=== PATIENT | male | born 1945 | race Caucasian/White ===

== ENCOUNTER 2016-06-15 12:31 | Emergency (ER) | payer MEDICARE, OTHER ==
[~2016-06-15] VITALS: Ht 180.3 cm; Wt 95.3 kg
[2016-06-15] MEDS ORDERED: ASPI81TA85 PO (12:50)
[2016-06-15] MEDS ORDERED: TRIA37.53 PO (12:50)
[2016-06-15] MEDS ORDERED: LISI-538 PO (12:50)
[2016-06-15] MEDS ORDERED: LOPR1TAB7 PO (12:50)
[2016-06-15] MEDS ORDERED: ATOR40TA PO (12:50)
[2016-06-15] MEDS ORDERED: NIFE20CA PO (12:50)
[2016-06-15] MEDS ORDERED: KETOROLAC 60 MG/2 ML VIAL (J1885) IM ONE (13:15)
--- NOTE | 2016-06-15 14:03 | REP ---
AP PELVIS: 06/15/2016 CLINICAL HISTORY: Left SI joint pain. FINDINGS: No prior study. Posterior element, bony fusion and pedicle screws from L4 through S1 noted. SI joints symmetric without erosion or narrowing. No abnormal sclerosis. Sacral ala and foramina unremarkable. Iliac wings, acetabuli and ischium without destructive lesion. There are degenerative changes at the acetabular roof bilaterally representing some degree of osteoarthritis. No abnormal calcifications. There are surgical clips in the deep pelvis. IMPRESSION: 1. No visible fracture or destructive lesion. 2. Hip osteoarthritis and evidence for prior lumbar fusion with pedicle screws, arch bars and bone graft material. 3. SI joints symmetric without erosion, sclerosis, narrowing or other acute finding. Signed by Lloyd Mckeon MD 06/15/2016 05:51 P
[2016-06-15 14:12] VITALS: BP 142/89
[2016-06-15] MEDS ORDERED: MEDR4PAK PO (14:13)
[2016-06-15] MEDS ORDERED: ZOFR4TAB3 PO (14:19)
[2016-06-15] MEDS ORDERED: ONDANSETRON 4 MG ORAL DISINTEGRATING TAB (S0181) PO ONE (14:30)
== END 2016-06-15 14:42 | disposition home or self-care (01) ==
LOC: M ED 13:53
DX: M46.1 Sacroiliitis, not elsewhere classified (principal); M16.12 Unilateral primary osteoarthritis, left hip; I10 Essential (primary) hypertension; Z98.1 Arthrodesis status
CPT/HCPCS: 72170; 96372; 99282; J1885

== ENCOUNTER → 2016-07-11 | Outpatient (REF) | payer MEDICARE, OTHER ==
[~2016-07-11] MED LIST: ASPI81TA85 PO; ATOR40TA PO; LISI-538 PO; LOPR1TAB7 PO; MEDR4PAK PO; NIFE20CA PO; TRIA37.53 PO; ZOFR4TAB3 PO
[2016-07-11 13:58] LABS: ALBUMIN 3.7 GM/DL (3.2-5.2); ALBUMIN/GLOBULIN RATIO 1.03 (1.00-1.93); ALKALINE PHOSPHATASE 98 U/L (45-117); ALT/SGPT 23 U/L (12-78); ANION GAP 7 MEQ/L (8-16); AST/SGOT 13 U/L (15-37); BILIRUBIN,TOTAL 0.5 MG/DL (0.2-1.0); BLOOD UREA NITROGEN 20 MG/DL (7-18); CALCIUM LEVEL 9.4 MG/DL (8.8-10.2); CARBON DIOXIDE LEVEL 31 MEQ/L (21-32); CHLORIDE LEVEL 103 MEQ/L (98-107); CHOLESTEROL LEVEL 155 MG/DL (<200); CREATININE FOR GFR 0.93 MG/DL (0.70-1.30); GLOMERULAR FILTRATION RATE > 60.0 (>42); GLUCOSE, FASTING 124 MG/DL (83-110); POTASSIUM SERUM 3.7 MEQ/L (3.5-5.1); SODIUM LEVEL 141 MEQ/L (136-145); TOTAL PROTEIN 7.3 GM/DL (6.4-8.2); TRIGLYCERIDES LEVEL 185 MG/DL (<150)
[2016-07-11 14:13] LABS: BASO % 0.4 % (0.0-1.0); EOS # 0.2 K/mm3 (0.0-0.50); EOS % 2.6 % (0.0-3.0); LARGE UNSTAINED CELL # 0.1 K/mm3 (0.0-0.4); LARGE UNSTAINED CELL % 1.2 % (0.0-4.0); LYMPH # 1.1 K/mm3 (1.5-4.5); LYMPH % 16.6 % (24.0-44.0); MEAN CORPUSCULAR HEMOGLOBIN 32.8 pg (27.0-33.0); MEAN CORPUSCULAR HGB CONC 36.1 g/dl (32.0-36.5); MEAN CORPUSCULAR VOLUME 90.8 fl (80.0-96.0); MONO # 0.6 K/mm3 (0.0-0.8); MONO % 9.5 % (0.0-5.0); NEUTROPHILS # 4.6 K/mm3 (1.8-7.7); NEUTROPHILS % 69.7 % (36.0-66.0); PLATELET COUNT, AUTOMATED 245 k/mm3 (150-450); RED CELL DISTRIBUTION WIDTH 13.6 % (11.5-14.5); WHITE BLOOD COUNT 6.6 K/mm3 (4.0-10.0)
== END ==
LOC: M SFHCCLAY 07:48
PROVIDERS: ATTEND Family Medicine
DX: I10 Essential (primary) hypertension (principal); R73.01 Impaired fasting glucose; E78.2 Mixed hyperlipidemia
CPT/HCPCS: 80053; 80061; 83036; 85025; G0463

== ENCOUNTER → 2016-11-21 | Outpatient (CLI) | payer MEDICARE, OTHER ==
[~2016-11-21] MED LIST changes: -ATOR40TA PO; +ATOR40TA75 PO; +BALANCED SALT SOLN OPHTH 15 ML BTL XX ONE; +ISOVUE-300 61% 50ML VIAL (Q9967) As Ordered ONE; +ISOVUE-M 300 61% 15ML VIAL (Q9967) As Ordered ONE; +PROPARACAINE 0.5% OPHTH SOL 15ML XX ONE
--- NOTE | 2016-11-22 06:37 | REP ---
Dacryocystography: Bilateral study. History: Bilateral nasolacrimal duct obstruction. Procedure: The inferior canaliculus of both eyes is cannulated by the referring partner alliance manager. Contrast is injected under fluoroscopic spot visualization in the PA projection. A total of 37 spot images are acquired. 20 seconds of fluoroscopy time was utilized. Findings: Initial bilateral injection only filled the left side. There is prompt filling of normal inferior and superior canaliculi on the left. The common canaliculus is unremarkable. The nasolacrimal sac and duct are patent and slightly irregular. No filling defect is seen. No dilation noted. A second injection was performed unilaterally on the right and this was successful. The superior and inferior canaliculi and the common canaliculus are normal in appearance. The nasolacrimal sac and duct on the right are quite irregular but patent with prompt spillage into the nasopharynx. No filling defect is visualized. There is a small air bubble in the proximal duct on the right. Impression: Irregularity of the nasolacrimal ducts bilaterally, right greater than left. Patency is documented on both sides. There is no evidence of obstruction or mass. Signed by Danilo Meneses MD 11/22/2016 08:02 A
== END ==
LOC: M RADPRO 14:26
PROVIDERS: ATTEND Ophthalmology
DX: H04.563 Stenosis of bilateral lacrimal punctum (principal)
CPT/HCPCS: 68850; 70170; Q9967

== ENCOUNTER → 2016-12-28 | Outpatient (REF) | payer MEDICARE, OTHER ==
[~2016-12-28] MED LIST changes: -BALANCED SALT SOLN OPHTH 15 ML BTL XX ONE; -ISOVUE-300 61% 50ML VIAL (Q9967) As Ordered ONE; -ISOVUE-M 300 61% 15ML VIAL (Q9967) As Ordered ONE; -PROPARACAINE 0.5% OPHTH SOL 15ML XX ONE
[2016-12-29 11:41] LABS: BASO # 0.1 10^3/uL (0.0-0.2); BASO % 0.6 % (0.0-1.0); EOS # 0.4 10^3/uL (0.0-0.50); EOS % 3.6 % (0.0-3.0); IMMATURE GRANULOCYTE % 0.3 % (0-0); LYMPH # 1.9 10^3/uL (1.5-4.5); LYMPH % 19.1 % (24.0-44.0); MEAN CORPUSCULAR HEMOGLOBIN 30.5 pg (27.0-33.0); MEAN CORPUSCULAR HGB CONC 34.4 g/dl (32.0-36.5); MEAN CORPUSCULAR VOLUME 88.6 fl (80.0-96.0); MONO # 1.3 10^3/uL (0.0-0.8); MONO % 12.8 % (0.0-5.0); NEUTROPHILS # 6.2 10^3/uL (1.8-7.7); NEUTROPHILS % 63.6 % (36.0-66.0); PLATELET COUNT, AUTOMATED 254 10^3/uL (150-450); RED CELL DISTRIBUTION WIDTH 14.2 % (11.5-14.5); WHITE BLOOD COUNT 9.7 10^3/uL (4.0-10.0)
[2016-12-29 12:09] LABS: ALBUMIN 3.8 GM/DL (3.2-5.2); ALBUMIN/GLOBULIN RATIO 0.97 (1.00-1.93); ALKALINE PHOSPHATASE 116 U/L (45-117); ALT/SGPT 22 U/L (12-78); ANION GAP 7 MEQ/L (8-16); AST/SGOT 12 U/L (15-37); BILIRUBIN,TOTAL 0.7 MG/DL (0.2-1.0); BLOOD UREA NITROGEN 26 MG/DL (7-18); CALCIUM LEVEL 9.4 MG/DL (8.8-10.2); CARBON DIOXIDE LEVEL 32 MEQ/L (21-32); CHLORIDE LEVEL 99 MEQ/L (98-107); CREATININE FOR GFR 1.11 MG/DL (0.70-1.30); GLOMERULAR FILTRATION RATE > 60.0 (>42); GLUCOSE, FASTING 118 MG/DL (83-110); POTASSIUM SERUM 3.7 MEQ/L (3.5-5.1); SODIUM LEVEL 138 MEQ/L (136-145); TOTAL PROTEIN 7.7 GM/DL (6.4-8.2)
== END ==
LOC: M SFHCCLAY 14:50
PROVIDERS: ATTEND Family Medicine
DX: I10 Essential (primary) hypertension (principal); R53.83 Other fatigue; R73.01 Impaired fasting glucose; Z11.59 Encounter for screening for other viral diseases; M17.0 Bilateral primary osteoarthritis of knee; J01.00 Acute maxillary sinusitis, unspecified; E78.2 Mixed hyperlipidemia; M70.72 Other bursitis of hip, left hip
CPT/HCPCS: 80053; 83036; 84443; 85025; 86803; G0463

== ENCOUNTER → 2017-07-09 | Outpatient (REF) | payer MEDICARE, OTHER ==
[2017-07-09 17:15] LABS: ALBUMIN 3.9 GM/DL (3.2-5.2); ALBUMIN/GLOBULIN RATIO 0.98 (1.00-1.93); ALKALINE PHOSPHATASE 98 U/L (45-117); ALT/SGPT 21 U/L (12-78); ANION GAP 9 MEQ/L (8-16); AST/SGOT 14 U/L (7-37); BILIRUBIN,TOTAL 0.6 MG/DL (0.2-1.0); BLOOD UREA NITROGEN 19 MG/DL (7-18); CALCIUM LEVEL 9.2 MG/DL (8.8-10.2); CARBON DIOXIDE LEVEL 27 MEQ/L (21-32); CHLORIDE LEVEL 106 MEQ/L (98-107); CHOLESTEROL LEVEL 132 MG/DL (<200); CHOLESTEROL RISK RATIO 3.069 (<5); CREATININE FOR GFR 1.05 MG/DL (0.70-1.30); GLOMERULAR FILTRATION RATE > 60.0 (>42); GLUCOSE, FASTING 106 MG/DL (70-100); HDL CHOLESTEROL 43 MG/DL (>40); LDL CHOLESTEROL 63.4 MG/DL (<100); NON-HDL-C 89 MG/DL; PROSTATIC SPECIFIC AG MONITOR < 0.01 NG/ML (< 4.0); SODIUM LEVEL 142 MEQ/L (136-145); TOTAL PROTEIN 7.9 GM/DL (6.4-8.2); TRIGLYCERIDES LEVEL 128 MG/DL (<150)
[2017-07-09 17:16] LABS: ESTIMATED AVERAGE GLUCOSE 120 MG/DL (60-110); HEMOGLOBIN A1c 5.8 %
== END ==
LOC: M SFHCCLAY 10:26
DX: E78.2 Mixed hyperlipidemia (principal); R73.01 Impaired fasting glucose; Z85.46 Personal history of malignant neoplasm of prostate
CPT/HCPCS: 80053

== ENCOUNTER → 2018-07-08 | Outpatient (REF) | payer MEDICARE, OTHER ==
[~2018-07-08] MED LIST changes: +ZOFR4TAB14 PO; -ZOFR4TAB3 PO
== END ==
LOC: M LAB REF 16:44
PROVIDERS: ATTEND Otolaryngology
DX: J30.89 Other allergic rhinitis (principal)

== ENCOUNTER → 2018-09-05 | Outpatient (REF) | payer MEDICARE, OTHER | LOC: M LABDRAWC 11:13 | PROVIDERS: ATTEND Urology | DX: Z85.46 Personal history of malignant neoplasm of prostate (principal) ==

== ENCOUNTER → 2018-09-27 | Outpatient (REF) | payer MEDICARE ==
[2018-09-27 12:34] LABS: BASO % 0.6 % (0.0-1.0); EOS # 0.2 10^3/uL (0.0-0.50); EOS % 2.8 % (0.0-3.0); HEMATOCRIT 43.5 % (42.0-52.0); HEMOGLOBIN 14.9 g/dl (13.5-17.5); LYMPH # 1.3 10^3/uL (1.5-4.5); LYMPH % 20.4 % (24.0-44.0); MEAN CORPUSCULAR HEMOGLOBIN 30.5 pg (27.0-33.0); MEAN CORPUSCULAR HGB CONC 34.3 g/dl (32.0-36.5); MEAN CORPUSCULAR VOLUME 89.1 fl (80.0-96.0); MONO # 0.8 10^3/uL (0.0-0.8); MONO % 11.5 % (0.0-5.0); NEUTROPHILS # 4.2 10^3/uL (1.8-7.7); NEUTROPHILS % 64.4 % (36.0-66.0); PLATELET COUNT, AUTOMATED 222 10^3/uL (150-450); RED BLOOD COUNT 4.88 10^6/uL (4.30-6.10); WHITE BLOOD COUNT 6.5 10^3/uL (4.0-10.0)
[2018-09-27 13:04] LABS: ALBUMIN 3.8 GM/DL (3.2-5.2); ALT/SGPT 22 U/L (12-78); BILIRUBIN,TOTAL 0.8 MG/DL (0.2-1.0); BLOOD UREA NITROGEN 18 MG/DL (7-18); CALCIUM LEVEL 8.9 MG/DL (8.8-10.2); CARBON DIOXIDE LEVEL 32 MEQ/L (21-32); CHLORIDE LEVEL 103 MEQ/L (98-107); CHOLESTEROL LEVEL 148 MG/DL (<200); CHOLESTEROL RISK RATIO 3.288 (<5); GLOMERULAR FILTRATION RATE > 60.0 (>42); GLUCOSE, FASTING 129 MG/DL (70-100); HDL CHOLESTEROL 45 MG/DL (>40); LDL CHOLESTEROL 76 MG/DL (<100); NON-HDL-C 103 MG/DL; POTASSIUM SERUM 3.6 MEQ/L (3.5-5.1); PROSTATIC SPECIFIC AG MONITOR < 0.01 NG/ML (< 4.00); SODIUM LEVEL 140 MEQ/L (136-145); TOTAL PROTEIN 7.3 GM/DL (6.4-8.2); TRIGLYCERIDES LEVEL 134 MG/DL (<150)
== END ==
LOC: M SFHCCLAY 09:07
PROVIDERS: ATTEND Family Medicine
DX: I10 Essential (primary) hypertension (principal); R73.01 Impaired fasting glucose; E78.2 Mixed hyperlipidemia; Z85.46 Personal history of malignant neoplasm of prostate

== ENCOUNTER 2019-08-05 10:46 | Day surgery (SDC) | payer MEDICARE ==
[~2019-08-05] VITALS: Ht 180.3 cm; Wt 105.9 kg
[2019-08-05] MEDS ORDERED: AMLO10TA5 PO (10:58)
[2019-08-05] MEDS ORDERED: VENTAER INH (10:58)
[2019-08-05] MEDS ORDERED: ESCI20TA PO (10:58)
[2019-08-05] MEDS ORDERED: CARV25TA PO (10:58)
[2019-08-05] MEDS ORDERED: TRIA37.5 PO (10:58)
[2019-08-05] MEDS ORDERED: MECLIZINE 25 MG TABLET PO ONE (11:30)
[2019-08-05 12:04] LABS: BASO % 0.4 % (0.0-1.0); EOS # 0.2 10^3/uL (0.0-0.5); EOS % 1.8 % (0.0-3.0); HEMATOCRIT 43.5 % (42.0-52.0); HEMOGLOBIN 15.6 g/dl (13.5-17.5); LYMPH # 1.5 10^3/uL (1.5-5.0); LYMPH % 16.1 % (24.0-44.0); MEAN CORPUSCULAR HEMOGLOBIN 31.8 pg (27.0-33.0); MEAN CORPUSCULAR HGB CONC 35.9 g/dl (32.0-36.5); MEAN CORPUSCULAR VOLUME 88.6 fl (80.0-96.0); MONO # 1.2 10^3/uL (0.0-0.8); MONO % 12.4 % (0.0-5.0); NEUTROPHILS # 6.4 10^3/uL (1.5-8.5); NEUTROPHILS % 69.1 % (36.0-66.0); PLATELET COUNT, AUTOMATED 202 10^3/uL (150-450); RED BLOOD COUNT 4.91 10^6/uL (4.30-6.10); WHITE BLOOD COUNT 9.3 10^3/uL (4.0-10.0)
--- NOTE | 2019-08-05 12:08 | REP ---
CT BRAIN WITHOUT CONTRAST: CT brain performed without IV contrast. There are no prior studies. Coronal reconstruction images are performed. There is moderate atrophy. There is no midline shift or mass effect. Patchy periventricular small vessel ischemic changes are present. There is no acute intracranial hemorrhage or extra-axial fluid collection. No skull fracture is seen. There are vascular calcifications in the carotid siphons. IMPRESSION: Chronic changes as discussed above with no evidence of acute intracranial hemorrhage or skull fracture. Electronically Signed by Mook Condon MD 08/05/2019 12:19 P
--- NOTE | 2019-08-05 12:26 | REP ---
CT CERVICAL SPINE: CT cervical spine performed in the axial plane with sagittal and coronal reconstruction images. There is no compression fracture or malalignment. There is evidence of prior anterior cervical discectomy and fusion at C3 through C7 levels. Anterior metallic plate is intact and is fixed with multiple metallic screws. There is anterior spurring at C3-4 and at C7-T1. Disc space narrowing is present at C3-4 with subchondral sclerosis and irregularity of the endplates. There is a disc spacer at C4-5. There is partial fusion at C5-6. There is significant narrowing at C6-7. There is posterior osteophytic ridging at C3-4 with uncovertebral spurring. There appears to be mild to moderate canal stenosis at that level with moderate bilateral foraminal narrowing. There is mild posterior osteophytic ridging at C6-7 with uncovertebral spurring. There is likely mild to moderate central canal stenosis with moderate right-sided foraminal narrowing. IMPRESSION: Degenerative changes and postsurgical changes as discussed above with no evidence of acute fracture or dislocation. Electronically Signed by Mook Condon MD 08/05/2019 12:27 P
[2019-08-05 13:03] LABS: ALBUMIN 3.7 GM/DL (3.2-5.2); ALT/SGPT 20 U/L (12-78); BILIRUBIN,TOTAL 0.6 MG/DL (0.2-1.0); BLOOD UREA NITROGEN 28 MG/DL (7-18); CALCIUM LEVEL 9.6 MG/DL (8.8-10.2); CARBON DIOXIDE LEVEL 25 MEQ/L (21-32); CHLORIDE LEVEL 105 MEQ/L (98-107); CREATININE FOR GFR 1.06 MG/DL (0.70-1.30); GLOMERULAR FILTRATION RATE > 60.0 (>42); GLUCOSE, FASTING 115 MG/DL (70-100); POTASSIUM SERUM 3.6 MEQ/L (3.5-5.1); SODIUM LEVEL 138 MEQ/L (136-145); TOTAL PROTEIN 7.2 GM/DL (6.4-8.2)
[2019-08-05 13:28] LABS: CK-MB VALUE MASS < 1.0 NG/ML (<3.6); CPK CREATINE PHOSPHOKINASE 86 U/L (39-308); MB/CK RELATIVE INDEX 1.16 (< OR =4); TROPONIN I < 0.02 NG/ML (< 0.10)
[2019-08-05] MEDS ORDERED: LIDOCAINE 1% SDV 30ML VIAL As Ordered ONE (13:58)
[2019-08-05] MEDS ORDERED: BACITRACIN PWD 50,000 UNITS VIAL As Ordered ONE (13:59)
[2019-08-05] MEDS ORDERED: ISOVUE-300 61% 50ML VIAL As Ordered ONE ×2 (13:59→17:53)
[2019-08-05] MEDS ORDERED: AMIODARONE HCL 150 MG/100 ML PREMIXED BAG (NEXTERONE) (J0282 PER 30MG) As Ordered ONE (13:59)
[2019-08-05 14:51] LABS: NT-PRO BNP 112 PG/ML (<125)
--- NOTE | 2019-08-05 15:43 | REP ---
REASON: Cardiac symptoms. PRIORS: None. The heart is borderline. The lungs are clear and the pleural angles are sharp. The osseous structures are within normal limits for the patient's age. There are spinal degenerative changes noted. IMPRESSION: Cardiomegaly without evidence of acute cardiopulmonary disease. Electronically Signed by Timmy Navarro DO 08/05/2019 04:05 P
--- NOTE | 2019-08-05 15:49 | CR ---
EMERGENCY ROOM CARDIOLOGY CONSULTATION: DATE OF CONSULTATION: 08/05/2019 REFERRING PHYSICIAN: Dr. Deb Mckeon INDICATION: Recurrent near syncope with effort dyspnea related to bradyarrhythmia. 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 Silva and Dr. Rainey for longstanding essential hypertension, obstructive sleep apnea, and abnormal EKG. Claims to first been aware of right bundle branch block some 10 years ago. EKG from 07/31/2016, from [place] shows a sinus bradycardia at 59 beats per minute (bpm) with extreme left axis deviation - left anterior hemiblock and right bundle branch block. He has been essentially free of any cardiovascular complaint until approximately 2-3 weeks ago when he developed increasing effort dyspnea and lightheadedness/ faintness. 07/18/2019, he collapsed having tried to get up out of bed claiming that his feet got tangled. Suffered blunt head trauma without serious consequence. He came to the emergency room for evaluation this morning because of persistence of unsteadiness and effort dyspnea. He was found to have marked bradycardia and intermittent high-grade atrioventricular (AV) block, so cardiology consultation was requested for possible permanent pacemaker. OTHER CARDINAL CARDIAC SYMPTOMS: Prior to a month ago did not feel particularly restricted. Their home Has multiple levels and he has been able to climb these stairs without difficulties. In particular, has been free of any effort related chest, jaw or arm discomfort. Aware of his abnormal EKG as mentioned above. Remote cardiac catheterization showed no evidence of obstructive coronary disease. Underwent a pharmacological stress first scan 4 years ago prior to knee surgery that confirmed a favorable prognosis at that time. Has only occasional dietary related heartburn. No history of reflux, dysphagia or gastrointestinal (GI) bleeding. He was exposed to secondhand smoke for 18 years growing up and never smoked cigarettes but does admit to occasionally smoking a cigar. Has a chronic problem with sinusitis and occasional dry cough but no hemoptysis or prior pneumonia. Customarily does not have shortness of breath as mentioned. Has had sleep disturbance, obstructive sleep apnea dating back to 20 years or more. Has had difficulty with continuous positive airway pressure (CPAP) therapies because of claustrophobia. Has been sleeping with CPAP by nasal prongs for the past 2-4 years. Manages his sleep for 2-4 hours using pressure therapy. Nocturia once or twice nightly. No history of rheumatic fever or heart murmur. Treated hypertension since his late 30s, but no known cardiomegaly. The patient's blood pressure is reasonably controlled,128-130/80s. Has a mild weight problem (weighed 130 pounds at age 18; max weight 270 pounds prior to back surgery 2006; his usual weight for the past year has fluctuated between 210 and 220 pounds). Has no awareness of his heart action. Claims not to have had previous documented rhythm disturbance. Does describe a family history of electrical problems, his mother who suffered from rheumatic heart disease had her first pacemaker at age 50. No history of congenital deafness or family history of premature sudden cardiac . Drinks 2-3 caffeinated sodas daily but avoids coffee and tea. Infrequently drinks alcoholic beverages, perhaps 2-3 per month. No history of thyroid dysfunction. Nonsmoker. Does admit to intermittent use of Afrin nasal spray having problems with congestion despite Flonase and Zyrtec. Avoids [id number] energy drinks or diet aids. History of intermittent dizziness and faintness only the past 2-3 weeks. A fall as described above. No other history of loss of consciousness. 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 Denies any other lateralizing neurological deficit, flank pain, hematuria or blue toe syndrome. No history of claudication. Unaware of varicose veins, phlebitis or ankle swelling. CORONARY RISK FACTORS: Male gender. Age. Chronic hypertension. Borderline diabetes query. No history of hypercholesterolemia. Cigar smoker only on occasion. No family history of premature coronary heart disease. 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 Transurethral prostatectomy 2007 for cancer. Right knee surgery 2016. Chronic sinusitis. Obstructive sleep apnea. A weight problem. SYSTEMS REVIEW: Denies any recent fever, chills or weight loss. Wears corrective lenses. No hearing problems. Has his own teeth. GI and respiratory as mentioned above. Nocturia once or twice nightly, but no known kidney disease or kidney stones. Has some foot numbness related to his prior spinal stenosis but no other joint complaints. History of for some depression. All other systems review is negative. MEDICATIONS: He takes: - lisinopril 20 mg by mouth twice a day - aspirin 81 mg daily - carvedilol 25 mg twice a day - atorvastatin 40 mg at bedtime - amlodipine 10 mg daily - triamterene/hydrochlorothiazide 37.5-25 mg 1 tablet daily - albuterol inhaler 2 puffs four times a day as needed, shortness of breath, recently - escitalopram 20 mg daily ALLERGIES: BETADINE and ZOLOFT (hives). PHYSICAL EXAMINATION: CONSTITUTIONAL: Pleasant, bright elderly male lay comfortably with the head of the bed elevated 30 degrees. No pallor or cyanosis. Slightly overweight. VITAL SIGNS: Heart rate 40 bpm and regular with irregularity. Blood pressure 164/76 supine. Respiratory rate 16. Oxygen saturation 98% on room air. Afebrile. Weight 103 kg. Height 5 feet 11. EYES: Normal conjunctivae and lids. No pallor or icterus. No xanthelasma. ENT/MOUTH: Dentition in good repair. Normal oral moisture. No central cyanosis. NECK: Trachea midline. Thyroid not enlarged. Well-healed right vertical skin incision following his anterior cervical disc repair. Jugular veins were 2 cm above the sternal angle. RESPIRATORY: Normal appearing anteroposterior chest configuration and chest expansion. Good air entry over both lung gazra with no abnormal pulmonary adventitious sounds. CARDIOVASCULAR: Apical impulse not well palpated. Heart sounds were actually quite distant and variable. No audible gallops with a soft variable systolic ejection murmur grade 1-2/6 along the left sternal border radiating to the right base. No diastolic murmur or rub. Normal carotid upstrokes with slightly increase in volume at this time that was somewhat variable with his arrhythmia. No audible bruits. Upper extremity, femoral and pedal pulses were symmetrical and normal. Abdominal aorta was not palpable. No abdominal bruits. EXTREMITIES: Has +/- distal lower leg pitting, a few dilated superficial venules but no varicose veins. No clubbing, peripheral cyanosis or splinter hemorrhages. GASTROINTESTINAL: Slightly overweight but soft, nontender abdomen with no hepatosplenomegaly. Normal bowel sounds. RECTAL EXAMINATION: Not indicated. MUSCULOSKELETAL: Gait of course was not assessed at this time. Well healed knee and cervical as well as lumbar incisions following prior orthopedic surgeries. No obvious joint deformities. Normal appearing muscular strength and tone. SKIN: No rashes, ecchymotic lesions, pallor or icterus. NEUROLOGIC/PSYCHIATRIC: Bright, alert and oriented. Gave a good history. Eye, facial and extremity movements were symmetrical and normal. No involuntary movements. INVESTIGATIONS: Chest x-ray is pending at this time. EKG taken today at 1158 hours shows underlying sinus rhythm at 60 bpm with complete heart block and probable junctional escape at 39 bpm. Underlying QRS complexes similar to spontaneous complexes of 07/31/2016 showing extreme left axis consistent with left anterior hemiblock. He had primary precordial repolarization abnormalities. CT scan of the brain without contrast showed evidence of small vessel ischemic changes but no acute intracranial hemorrhage or infarction. No skull fracture. Vascular calcifications of the carotid siphons. Cervical CT scan spine showed degenerative changes and postsurgical changes but no acute dislocation or fracture. Blood Work: Hemoglobin 15.6, normal white blood cell count and platelet count. Electrolytes were in balance with a BUN 28, creatinine of 1.06, random glucose 115. Normal liver function studies. Troponin I was less than 0.02. ProBNP level and TSH are pending at this time. Albumin 3.7. COVID-19 serology is pending. IMPRESSION/PLAN: 1. Complete heart block: Intermittent phenomenon believed to be related to his recent onset effort intolerance and near-syncope/syncope. Though the patient is receiving carvedilol in light of his underlying conduction disturbance and his complete heart block, we have recommended implantation of permanent dual-chamber pacemaker under monitored local anesthesia. The indication, procedure and potential risks were discussed with the patient and his (his was on telephone), they appeared to understand and agree. This will be arranged as soon as possible. For the time being he will be kept nothing by mouth with IV fluid. 2. Abnormal EKG - antecedent bifascicular block (left anterior hemiblock and right bundle branch block): This dates back for at least 3 years and he has not apparently had symptomatic bradyarrhythmia on his current beta-cinthya until 2-3 weeks ago as mentioned above. I suspect this conduction disease is degenerative related to his chronic hypertension. 3. Chronic essential hypertension: Effort dyspnea as mentioned above believed to be related to his bradyarrhythmia not primarily left ventricular dysfunction. Has no other symptoms or signs of congestion, current increased systolic blood pressure and pulse pressure believed to be related to his bradyarrhythmia. His current mild prerenal azotemia is similarly suspected to be related to reduced renal perfusion with his bradyarrhythmia. His pacemaker implant will be arranged within a matter of the next few hours under monitored local anesthesia. We will likely be keeping him overnight and resuming his combination antihypertensive therapies. His jalousies installer in [place] is aware of his problems and need for permanent pacemaker. WILLIAN
[2019-08-05] MEDS ORDERED: LIDOCAINE 1% MDV 20ML VIAL As Ordered ONE (17:53)
[2019-08-05] MEDS ORDERED: ceFAZolin 2 GM/D5W 50 ML IV BAG (J0690 PER 500MG) As Ordered ONE (17:54)
[2019-08-05] MEDS ORDERED: AMIODARONE 150MG/3ML INJ (J0282) As Ordered ONE (17:54)
[2019-08-05] MEDS ORDERED: MIDAZOLAM INJ 2MG/2ML VIAL (J2250 PER 1MG) As Ordered ONE (18:00)
[2019-08-05] MEDS ORDERED: LIDOCAINE 2% 100MG/5ML SDV (FOR ANES.) As Ordered ONE (18:00)
[2019-08-05] MEDS ORDERED: propofoL 200 MG/20 ML VIAL As Ordered ONE ×3 (18:00→20:02)
[2019-08-05] MEDS ORDERED: fentaNYL 100 MCG/2 ML INJECTION (J3010) As Ordered ONE ×2 (18:00→21:08)
[2019-08-05] MEDS ORDERED: METOCLOPRAMIDE INJ 10MG/2ML VIAL (J2765 PER 1) IV PRN (21:00)
[2019-08-05] MEDS ORDERED: ONDANSETRON 4MG/2ML VIAL IV PRN (21:00)
[2019-08-05] MEDS ORDERED: ATORVASTATIN 20 MG TAB PO SCH (21:00)
[2019-08-05] MEDS ORDERED: LR 1,000 ML IV SCH (21:00)
[2019-08-05] MEDS ORDERED: ACETAMINOPHEN TAB 650MG DOSE (2X325MG) PO PRN (21:00)
[2019-08-05] MEDS: fentaNYL 100 MCG/2 ML INJECTION (J3010) IV PRN ×4 (21:10→21:38)
[2019-08-05 21:46] VITALS: BP 140/92
[2019-08-05] MEDS: CARVedilol 12.5 MG TAB PO SCH (22:13)
[2019-08-05] MEDS: lisinopriL 10 MG TAB PO SCH (22:14)
--- NOTE | 2019-08-05 22:33 | RO ---
DATE OF PROCEDURE: 08/05/2019 PROCEDURE: Implantation of permanent dual-chamber pacemaker. IMPLANTING MAGAZINE JOURNALIST: Dr. Gerber Knutson ANESTHESIOLOGIST: Dr. Munoz INDICATION: Complete heart block. POSTOPERATIVE DIAGNOSIS: Complete heart block. TYPE OF ANESTHESIA: Monitored local anesthesia. DESCRIPTION OF PROCEDURE: With the patient in the fasting state having signed informed consent and having received Ancef 2 grams IV premedication, he was taken to the operating theater. Numerous skin electrodes were applied to facilitate continuous electrocardiographic monitoring. Self-adhesive cardioverting/defibrillating/pacing pads were applied in an anteroposterior configuration and connected to a bedside cardioverter defibrillator noninvasive percutaneous pacing system. The left subclavian region was prepped and draped in the usual fashion, and the skin was infiltrated with 1% Xylocaine. We proceeded to puncture the left axillary vein and had considerable difficulty advancing the guidewire across the midline to the superior vena cava. We are not sure whether this had anything to do with his prior anterior cervical disc surgery. However, we finally were able to advance guidewires down to the inferior vena cava. We then proceeded to advance the pacing leads to the right ventricular apex into the right atrium under fluoroscopic and electrocardiographic control and again encountered considerable difficulty. The final right ventricular position was the right ventricular apex, but it was very difficult to enter the right ventricle. The final position for the right atrial lead was actually in the floor of the right atrium rather than the right ventricular apex as the right ventricular apex was actually electrically silent with no signal or capability of capture. The right ventricular lead ([employer], model #XFP2920O/58, serial #[id number]) measurements were: Stimulation threshold 0.4V/0.4 ms/impedance 616 ohms. The R wave amplitude measured 31.2 mV. The atrial lead ([employer], model #[id number]/52, serial #[id number]) measurements were: Stimulation threshold 0.4V/0.4 ms/impedance 441 ohms. The P wave amplitude measured 1.7 mV. These leads were secured in position with sleeves sutured at the insertion site. These leads were then connected to a dual chamber pulse generator ([employer] MRI compatible, model #HH8687, serial #[id number]) and appropriate DDD pacing was documented. The pulse generator was placed in the pocket and secured in position with a suture through the right upper hand corner of the epoxy header. The subcutaneous tissues were approximated using a running chromic suture and the skin was closed using tricia. A dry dressing was applied, and the patient was returned to the recovery room in good condition. As mentioned, technically extremely challenging case taking 15 minutes of fluoroscopy when the usual case will require 30 seconds to 45 seconds. Usual case duration for dual chamber pacemaker 45-50 minutes; this case took 2 hours and 15 minutes. Estimated blood loss: 50-100 mL. Postoperative portable upright chest x-ray showed good lead position with no pneumothorax or pleural effusion. His postoperative EKG showed consistent AV sequentially paced rhythm at 60 beats per minute (bpm). Paced QRS complexes had an extreme right axis deviation with right bundle branch block (RBBB) precordial configuration. The patient will be monitored overnight on telemetry, and we anticipate his discharge home tomorrow afternoon. He will receive an additional three doses of Ancef 1 gram IV every 8 hours.
[2019-08-05 23:00] VITALS: O2SAT 96
[2019-08-05] MEDS: amLODIPine 5 MG TAB PO SCH (23:15)
[2019-08-05 23:30] VITALS: BP 98/70
[2019-08-05] MEDS ORDERED: SLF 3 ML SYR IV PRN (23:30)
[2019-08-05] MEDS: traMADol 50 MG TAB PO PRN (23:55)
[2019-08-06] VITALS (18 sets, daily range): BP systolic 98–152; BP diastolic 70–96; O2SAT 95–97
--- NOTE | 2019-08-06 00:31 | ECGEPIP ---
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
[2019-08-06] MEDS: ceFAZolin SOD 1 GM in D5W MINI-BAG PLUS 50 ML IV SCH ×3 (01:49→17:24)
[2019-08-06] MEDS: SLF 3 ML SYR IV SCH ×2 (04:20→14:20)
[2019-08-06 04:57] LABS: HEMATOCRIT 41.2 % (42.0-52.0); HEMOGLOBIN 14.3 g/dl (13.5-17.5); MEAN CORPUSCULAR HGB CONC 34.7 g/dl (32.0-36.5); MEAN CORPUSCULAR VOLUME 89.2 fl (80.0-96.0); PLATELET COUNT, AUTOMATED 196 10^3/uL (150-450); RED BLOOD COUNT 4.62 10^6/uL (4.30-6.10); WHITE BLOOD COUNT 10.6 10^3/uL (4.0-10.0)
[2019-08-06 05:16] LABS: BLOOD UREA NITROGEN 24 MG/DL (7-18); CALCIUM LEVEL 8.6 MG/DL (8.8-10.2); CARBON DIOXIDE LEVEL 27 MEQ/L (21-32); CHLORIDE LEVEL 104 MEQ/L (98-107); CREATININE FOR GFR 1.03 MG/DL (0.70-1.30); GLOMERULAR FILTRATION RATE > 60.0 (>42); GLUCOSE, FASTING 126 MG/DL (70-100); POTASSIUM SERUM 3.5 MEQ/L (3.5-5.1); SODIUM LEVEL 138 MEQ/L (136-145)
--- NOTE | 2019-08-06 06:34 | ECGEPIP ---
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
--- NOTE | 2019-08-06 08:16 | REP ---
PORTABLE CHEST X-RAY: Single view. HISTORY: Pacemaker placement. COMPARISON CHEST X-RAY: 08/05/2019. FINDINGS: A bipolar pacemaker is seen inserted via the left subclavian vein with intact right atrial and right ventricular configuration leads. There is no evidence of pneumothorax or hydrothorax. The thoracic aorta is tortuous as before. Heart is not enlarged. Pleural angles are sharp. Pulmonary vasculature is not increased. IMPRESSION: Pacemaker in place. No complications seen. Electronically Signed by Danilo Meneses MD 08/06/2019 11:59 A
--- NOTE | 2019-08-06 08:36 | ECGEPIP ---
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
[2019-08-06] MEDS: lisinopriL 10 MG TAB PO SCH (08:54)
[2019-08-06] MEDS: CARVedilol 12.5 MG TAB PO SCH (08:54)
[2019-08-06] MEDS: traMADol 50 MG TAB PO PRN ×2 (08:55→15:45)
[2019-08-06] MEDS ORDERED: ESCITALOPRAM OXALATE 10 MG TAB (LEXAPRO) PO SCH (09:00)
--- NOTE | 2019-08-06 11:04 | REP ---
CHEST, TWO VIEWS: Two views of the chest is performed. Comparison 08/05/2019. Left dual-lead pacemaker is noted. There is no pneumothorax or acute infiltrate. There is mild cardiomegaly. There is calcification and mild ectasia of the thoracic aorta with no change in the mediastinal silhouette. There are moderate degenerative changes of the spine. IMPRESSION: Mild cardiomegaly. Left dual-lead pacemaker. No acute parenchymal findings. Electronically Signed by Mook Condon MD 08/06/2019 04:41 P
[2019-08-06] MEDS: amLODIPine 5 MG TAB PO SCH (12:16)
--- NOTE | 2019-08-06 16:10 | DSES ---
TRANSFER SUMMARY DATE OF ADMISSION: 08/05/2019 DATE OF DISCHARGE/TRANSFER: 08/06/2019 CLINICAL SUMMARY: This 74-year-old resident of [facility] with history of essential hypertension and obstructive sleep apnea has been known to have an abnormal EKG dating back some 10 years. EKG prior to knee surgery July 31, 2016 showed sinus bradycardia at 59 beats per minute (bpm) with left anterior hemiblock and right bundle branch block. He had been completely free of cardiovascular complaint until several weeks prior to his current presentation to [facility] emergency room (ER). Had noticed increasing shortness of breath, weakness and faintness. Upon his presentation, it was noticed he was in complete heart block with a ventricular escape 39 beats per minute. Please see my emergency room cardiology consultation for further details. INVESTIGATIONS AND COURSE IN HOSPITAL: Baseline blood work showed a normal complete blood count, electrolyte balance with degree of prerenal azotemia with BUN 28, creatinine 1.06 but normal ultrasensitive TSH and troponin I level. Admission PA and lateral chest x-ray showed a least mild cardiomegaly with slightly unfolded thoracic aorta but normal pulmonary vasculature with clear lung garza and some degenerative changes of his thoracic spine including hardware used to correct his cervical disc disease. In the fasting state, he was taken to the operating room late yesterday afternoon/evening and underwent implantation of dual-chamber permanent pacemaker under monitored local anesthesia. Difficulty was encountered with venous access but finally guidewires were able to be advanced down to what appeared to be the inferior vena cava. The patient had transcutaneous noninvasive pacing pads in position for security in the patient's safety. A right ventricular lead was attempted to be advanced to the right ventricle having a loop formed in the right atrium. As the loop was being straightened, it suddenly popped into what was believed to be the right ventricular apex. Pacing thresholds in intracardiac electrograms were excellent. We also encountered considerable difficulty finding adequate right atrial intracardiac electrograms and the pacing threshold and finally obtained excellent values in the right atrial floor with P-wave amplitude of 1.7mV and atrial pacing threshold 0.4 V/0.4 ms. The procedures did entail greater time because of challenging lead position and was associated with some slightly more blood loss than usual. Postoperative portable upright chest x-ray showed fairly stable lead position and postoperative EKG showed consistent AV sequentially paced rhythm at 60 bpm. The paced ventricular complexes had an usual axis that was rightward and precordial leads showed a right bundle branch block paced pattern. Followup PA left lateral chest x-ray this morning also showed somewhat strange lead configuration so a transthoracic echocardiogram was requested and performed this afternoon. I reviewed this personally and it showed mild concentric left ventricular hypertrophy with left ventricular hyperkinesis ejection fraction 75%. A mildly dilated left atrium with grade 1 LV diastolic dysfunction and slightly increased estimated mean left atrial pressure. Right heart chambers were somewhat challenging to visualize but appeared to be enlarged. The inferior vena cava was of normal sinus with normal respiratory collapse. There was no pericardial effusion. However, it was apparent that the ventricular pacing lead was in the left ventricular apex and traversed the aortic valve from the aortic root. Mild degenerative changes of the mitral and aortic valves without functional abnormality. In light of this malpositioning, the patient is at increased risk of systemic thromboembolic event which is quite unacceptable. I immediately discussed this with the patient and his who appeared to understand. In light of the challenging nature of his implant, I recommended we transfer him to Dr. La Hanson, supervisor microwave at [facility] to arrange for correction of his pacing system. He graciously accepted and we are arranging the patient's transportation by ambulance as soon as possible. Currently the patient is comfortable without cardiovascular complaint. Heart rate 62 beats per minute, blood pressure 130/82, respiratory rate 18, O2 saturation 95% on room air. Blood work this morning showed a hemoglobin of 14.3, white blood cell count 10.4, normal platelet count. Electrolytes were normal. BUN was slightly improved to 24, creatinine 1.0, fasting glucose 126. TRANSFER DIAGNOSES: 1. Malpositioned pacing leads. 2. Underlying complete heart block status post a dual-chamber pacemaker implant yesterday. 3. Abnormal EKG - conduction tissue disease with left anterior hemiblock and right bundle branch block. 4. Hypertensive heart disease ( benign without heart failure). 5. Obstructive sleep apnea - the patient struggles with pressure therapy. CURRENT MEDICATIONS: - carvedilol 25 mg twice a day - lisinopril 10 mg twice a day - amlodipine 5 mg twice a day - atorvastatin 40 mg nightly - Lexapro 20 mg by mouth daily MTDD
--- NOTE | 2019-08-06 18:06 | ECHO ---
DATE OF PROCEDURE: 08/06/2019 Age: 74 Gender: Male. Height 71 inches, weight 227 pounds, body surface area 2.22 sq m Inpatient, progressive care unit, room 3228. REFERRING PHYSICIAN: Dr. Gerber Knutson INDICATION: Cardiomegaly, abnormal EKG, post permanent dual-chamber pacemaker implant. MEASUREMENTS: 2-D MEASUREMENTS: RV: 4.8 cm LV: 4.6 cm Septum: 1.4 cm Posterior wall: 1.4 cm Aortic root: 3.4 cm LA: 4.6 cm LVEF: 75% DOPPLER MEASUREMENTS: AV: 1.9 m/s LVOT: 1.1 m/s LVOT diameter: 2.0 cm MV-E: 85 A: 95 E/A ratio: 0.9 Early mitral deceleration time at 280 ms. E prime medial: 5.1, A prime medial: 9, E prime lateral: 8.6 Average E/E prime ratio: 12.4/PCWP: 17.9 mmHg PV: 0.9 m/s Pulmonary artery acceleration time: 126 ms PASP: 24 mmHg IVC: 1.8 cm COMMENTS: Consistent AV sequentially paced rhythm with paced complexes having a right bundle branch block configuration. Technically challenging study in light of the patient's body habitus but diagnostic and useful information was still obtained. M-mode and 2-dimensional echocardiography was performed with pulsed, continuous wave, color flow, and tissue Doppler studies. Moderate concentric left ventricle hypertrophy with hyperkinetic wall motion. Moderately dilated left atrium with grade 1 LV diastolic dysfunction and current estimated mean left atrial pressure marginally increased. Right heart chambers appeared to be at least mildly dilated with normal right ventricular free wall motion but unable to accurately estimate his right ventricular systolic pressure as we are unable to obtain a clear continuous wave envelope of his tricuspid insufficiency. Estimated pulmonary arterial pressure from the pulmonary artery acceleration time would be considered within normal limits. Normal inferior vena cava (IVC) size and collapse against an elevated central venous pressure. Normal aortic root dimension. Mild aortic valvular sclerosis without stenosis with trace insufficiency suspected to be related to a malpositioned ventricular pacing lead. Normal-appearing and functioning mitral valve. The tricuspid valve appeared to be normal with at least mild insufficiency but, as mentioned above, we could not accurately estimate right ventricular systolic pressure due to image difficulty. No pericardial effusion. Pacing lead could be visualized coming down the aortic root through the aortic valve then buckling to the floor of the left ventricle and terminating in the left ventricle apex. In light of the above findings, it was apparent his pacing system would need to be revised promptly in order to reduce the risk of systemic thromboembolic event with his malposition leads. This was discussed with the patient and his . Dr. La Hanson, pattern marker, [facility], has graciously accepted him in transfer to remedy the problem for us. WILLIAN
== END 2019-08-06 18:41 | disposition short-term general hospital (02) ==
LOC: M ED 10:46 → M SDC 14:07 → M PCU 18:52 → UNDOADMIN 18:52 → M PCU 19:11 → M ED INP 19:11 → M PCU 21:46 → M ED INP 21:46 → M SDC 08-06 18:41 → UNDODISIN 08-06 18:41
PROVIDERS: ATTEND Internal Medicine Cardiovascular Disease
DX: I44.2 Atrioventricular block, complete (principal); T82.190A Other mechanical complication of cardiac electrode, initial encounter; Y71.2 Prosthetic and other implants, materials and accessory cardiovascular devices associated with adverse incidents; R55 Syncope and collapse; R94.31 Abnormal electrocardiogram [ECG] [EKG]; I11.9 Hypertensive heart disease without heart failure; E78.5 Hyperlipidemia, unspecified; G47.33 Obstructive sleep apnea (adult) (pediatric); M54.5 Low back pain; F41.9 Anxiety disorder, unspecified; F32.9 Major depressive disorder, single episode, unspecified; Z98.1 Arthrodesis status; Z91.048 Other nonmedicinal substance allergy status; Z88.8 Allergy status to other drugs, medicaments and biological substances; Z79.899 Other long term (current) drug therapy; Z79.82 Long term (current) use of aspirin; Z11.59 Encounter for screening for other viral diseases
CPT/HCPCS: 33208; 36415; 70450; 71045; 71046; 72125; 76000; 80048; 80053; 82550; 82553; 83880; 84443; 84484; 85025; 85027; 93005; 93306; 96365; 96376; 99285; C1785; C1898; J0690; J2250; J3010; U0002

== ENCOUNTER → 2019-11-04 | Outpatient (REF) | payer MEDICARE ==
[~2019-11-04] MED LIST changes: +AMLO1TAB25 PO; -ASPI81TA85 PO; +ASPI81TA86 PO; +CARV25TA PO; +ESCI20TA PO; +TRIA37.5 PO; +VENTAER INH
== END ==
LOC: M SFHCCLAY 14:53
PROVIDERS: ATTEND Family Medicine
DX: Z12.5 Encounter for screening for malignant neoplasm of prostate (principal)

== ENCOUNTER → 2019-11-04 | Outpatient (REF) | payer MEDICARE ==
[2019-12-22 21:58] LABS: HEMATOCRIT 47.8 % (42.0-52.0); HEMOGLOBIN 16.2 g/dl (13.5-17.5); MEAN CORPUSCULAR HEMOGLOBIN 30.7 pg (27.0-33.0); MEAN CORPUSCULAR HGB CONC 33.9 g/dl (32.0-36.5); MEAN CORPUSCULAR VOLUME 90.5 fl (80.0-96.0); PLATELET COUNT, AUTOMATED 229 10^3/uL (150-450); RED BLOOD COUNT 5.28 10^6/uL (4.30-6.10); WHITE BLOOD COUNT 6.7 10^3/uL (4.0-10.0)
[2019-12-29 04:18] LABS: BLOOD UREA NITROGEN 19 MG/DL (7-18); CALCIUM LEVEL 9.5 MG/DL (8.8-10.2); CARBON DIOXIDE LEVEL 30 MEQ/L (21-32); CHLORIDE LEVEL 103 MEQ/L (98-107); CHOLESTEROL LEVEL 143 MG/DL (<200); CHOLESTEROL RISK RATIO 3.666 (<5); CREATININE FOR GFR 0.97 MG/DL (0.70-1.30); GLOMERULAR FILTRATION RATE > 60.0 (>42); GLUCOSE, FASTING 127 MG/DL (70-100); HDL CHOLESTEROL 39 MG/DL (>40); LDL CHOLESTEROL 74 MG/DL (<100); NON-HDL-C 104 MG/DL; POTASSIUM SERUM 3.6 MEQ/L (3.5-5.1); SODIUM LEVEL 138 MEQ/L (136-145); TRIGLYCERIDES LEVEL 149 MG/DL (<150)
== END ==
LOC: M LABDRAWC 14:50
PROVIDERS: ATTEND Family Medicine Adult Medicine
DX: I10 Essential (primary) hypertension (principal); D64.9 Anemia, unspecified; E78.2 Mixed hyperlipidemia; Z12.5 Encounter for screening for malignant neoplasm of prostate
CPT/HCPCS: 36415; 80048; 80061; 85027; G0103

== ENCOUNTER → 2019-12-03 | Outpatient (CLI) | payer MEDICARE ==
--- NOTE | 2019-12-19 07:30 | REP ---
LIVER ULTRASOUND: CLINICAL: Abnormal findings on prior outside CT. TECHNIQUE: Real time, ch scale ultrasound examination using curved array transducer. FINDINGS: The liver is mildly echogenic, suggesting fatty infiltration and includes a 9 x 8 x 7 mm simple cyst in the left lobe as well as a 16 x 17 x 13 mm relatively simple cyst with single thin septation, also identified in the left lobe. The pancreas is incompletely evaluated due to interposed bowel gas, but the visualized portions appear normal. The gallbladder is without gallstones, wall thickening or pericholecystic fluid. There is a single focus of adenomyomatosis along the anterior wall of relative insignificance. No biliary ductal dilatation is appreciated and the common bile duct measures 4.6 mm diameter. The right kidney measures 12.6 x 6.4 x 6.2 cm and includes a 2.5 cm upper pole simple cyst. No ascites in the visualized right upper quadrant. IMPRESSION: 1. Hepatosteatosis with 2 hepatic cysts, as described above, one of which demonstrate a single thin septation and is otherwise likely benign. 2. Simple right renal cyst. MTDD
== END ==
LOC: M RAD 06:34
PROVIDERS: ATTEND Internal Medicine Gastroenterology
DX: R93.89 Abnormal findings on diagnostic imaging of other specified body structures (principal); K76.0 Fatty (change of) liver, not elsewhere classified; K76.89 Other specified diseases of liver; N28.1 Cyst of kidney, acquired

== ENCOUNTER → 2020-08-17 | Outpatient (REF) | payer MEDICARE ==
[~2020-08-17] MED LIST changes: -ESCI20TA PO; +ESCI20TA16 PO; -LISI-538 PO; +LISI20TA33 PO
[2020-08-17 12:37] LABS: BASO # 0.1 10^3/uL (0.0-0.2); BASO % 0.8 % (0.0-1.0); EOS # 0.2 10^3/uL (0.0-0.5); EOS % 2.4 % (0.0-3.0); HEMOGLOBIN 16.1 g/dl (13.5-17.5); LYMPH # 1.3 10^3/uL (1.5-5.0); LYMPH % 17.2 % (24.0-44.0); MEAN CORPUSCULAR HEMOGLOBIN 30.3 pg (27.0-33.0); MEAN CORPUSCULAR HGB CONC 33.5 g/dl (32.0-36.5); MEAN CORPUSCULAR VOLUME 90.4 fl (80.0-96.0); MONO # 0.8 10^3/uL (0.0-0.8); MONO % 10.9 % (2.0-8.0); NEUTROPHILS # 5.2 10^3/uL (1.5-8.5); NEUTROPHILS % 68.3 % (36.0-66.0); PLATELET COUNT, AUTOMATED 237 10^3/uL (150-450); RED BLOOD COUNT 5.31 10^6/uL (4.30-6.10); WHITE BLOOD COUNT 7.5 10^3/uL (4.0-10.0)
[2020-08-17 13:02] LABS: HEMOGLOBIN A1c 6.3 %
[2020-08-17 13:09] LABS: ALBUMIN 3.7 GM/DL (3.2-5.2); ALT/SGPT 20 U/L (12-78); BILIRUBIN,TOTAL 0.6 MG/DL (0.2-1.0); BLOOD UREA NITROGEN 23 MG/DL (7-18); CALCIUM LEVEL 9.5 MG/DL (8.8-10.2); CARBON DIOXIDE LEVEL 29 MEQ/L (21-32); CHLORIDE LEVEL 103 MEQ/L (98-107); CHOLESTEROL LEVEL 152 MG/DL (<200); CHOLESTEROL RISK RATIO 3.619 (<5); CREATININE FOR GFR 1.13 MG/DL (0.70-1.30); GLOMERULAR FILTRATION RATE > 60.0 (>42); GLUCOSE, FASTING 128 MG/DL (70-100); HDL CHOLESTEROL 42 MG/DL (>40); LDL CHOLESTEROL 70 MG/DL (<100); NON-HDL-C 110 MG/DL; POTASSIUM SERUM 4.3 MEQ/L (3.5-5.1); PROSTATIC SPECIFIC AG MONITOR < 0.01 NG/ML (< 4.00); SODIUM LEVEL 140 MEQ/L (136-145); TOTAL PROTEIN 7.6 GM/DL (6.4-8.2); TRIGLYCERIDES LEVEL 201 MG/DL (<150)
== END ==
LOC: M SFHCCLAY 08:41
PROVIDERS: ATTEND Family Medicine
DX: R73.01 Impaired fasting glucose (principal); I10 Essential (primary) hypertension; E78.2 Mixed hyperlipidemia; Z85.46 Personal history of malignant neoplasm of prostate
CPT/HCPCS: 80053; 80061; 83036; 84153; 85025; G0463

== ENCOUNTER → 2020-11-29 | Outpatient (CLI) | payer MEDICARE ==
[~2020-11-29] MED LIST changes: +ASPI81CH33 PO; +LEXA5TAB13 PO; +SING10TA32 PO
--- NOTE | 2020-11-29 10:37 | REP ---
INDICATION: HYPERTENSION. COMPARISON: Multiple latest 08/06/2019 TECHNIQUE: PA and lateral FINDINGS: There is cardiomegaly status quo. The dual chamber bipolar pacemaker device leads appear appropriate and contiguous. There has been revision since the last exam. Battery and hardware now seen on the right. Lung garza are clear and stable. The pleural angles are sharp. There is no change in the osseous structures. IMPRESSION: There is no acute cardiopulmonary disease. <Electronically signed by Timmy Navarro > 11/29/20 0017
== END ==
LOC: M CLY 09:32
PROVIDERS: ATTEND Family Medicine
DX: Z01.818 Encounter for other preprocedural examination (principal); I10 Essential (primary) hypertension
CPT/HCPCS: 71046; 80053; 85025; G0463

== ENCOUNTER → 2020-11-29 | Outpatient (REF) | payer MEDICARE ==
[2020-11-29 12:03] LABS: BASO % 0.6 % (0.0-1.0); EOS # 0.1 10^3/uL (0.0-0.5); EOS % 2.1 % (0.0-3.0); HEMATOCRIT 47.7 % (42.0-52.0); HEMOGLOBIN 16.2 g/dl (13.5-17.5); LYMPH # 1.2 10^3/uL (1.5-5.0); LYMPH % 18.1 % (24.0-44.0); MEAN CORPUSCULAR HEMOGLOBIN 30.5 pg (27.0-33.0); MEAN CORPUSCULAR VOLUME 89.8 fl (80.0-96.0); MONO # 0.7 10^3/uL (0.0-0.8); MONO % 10.7 % (2.0-8.0); NEUTROPHILS # 4.5 10^3/uL (1.5-8.5); NEUTROPHILS % 68.2 % (36.0-66.0); PLATELET COUNT, AUTOMATED 220 10^3/uL (150-450); RED BLOOD COUNT 5.31 10^6/uL (4.30-6.10); WHITE BLOOD COUNT 6.6 10^3/uL (4.0-10.0)
[2020-11-29 16:36] LABS: ALBUMIN 3.7 GM/DL (3.2-5.2); ALT/SGPT 19 U/L (12-78); BILIRUBIN,TOTAL 0.9 MG/DL (0.2-1.0); BLOOD UREA NITROGEN 23 MG/DL (7-18); CALCIUM LEVEL 9.3 MG/DL (8.8-10.2); CARBON DIOXIDE LEVEL 28 MEQ/L (21-32); CHLORIDE LEVEL 101 MEQ/L (98-107); GLOMERULAR FILTRATION RATE > 60.0 (>42); GLUCOSE, FASTING 120 MG/DL (70-100); POTASSIUM SERUM 3.7 MEQ/L (3.5-5.1); SODIUM LEVEL 137 MEQ/L (136-145); TOTAL PROTEIN 7.4 GM/DL (6.4-8.2)
== END ==
LOC: M SFHCCLAY 09:23
PROVIDERS: ATTEND Family Medicine
DX: Z01.818 Encounter for other preprocedural examination (principal); I10 Essential (primary) hypertension

== ENCOUNTER → 2020-12-01 | Outpatient (CLI) | payer MEDICARE | LOC: M LABSMTC 09:59 | PROVIDERS: ATTEND Anesthesiology | DX: Z01.818 Encounter for other preprocedural examination (principal); Z11.52 Encounter for screening for COVID-19 ==

== ENCOUNTER 2020-12-06 06:04 | Day surgery (SDC) | payer MEDICARE ==
[~2020-12-06] VITALS: Ht 180.3 cm; Wt 99.3 kg
[~2020-12-06 06:04] MED LIST changes: +EMLA CREAM 5GM TUBE (LIDOCAINE/PRILOCAINE) TOP PRN; +LIDOCAINE 1% MDV 20ML VIAL SQ PRN; +LR 1,000 ML IV ONE
[2020-12-06] MEDS ORDERED: MIDAZOLAM INJ 2MG/2ML VIAL (J2250 PER 1MG) As Ordered ONE (06:57)
[2020-12-06] MEDS ORDERED: ACETAMINOPHEN 1000MG 100ML IV BTL (OFIRMEV) (J0131 PER 10MG) As Ordered ONE (06:58)
[2020-12-06] MEDS ORDERED: fentaNYL 100 MCG/2 ML INJECTION (J3010) As Ordered ONE (06:58)
[2020-12-06] MEDS ORDERED: propofoL 200 MG/20 ML VIAL As Ordered ONE (06:59)
[2020-12-06] MEDS ORDERED: ONDANSETRON 4MG/2ML VIAL As Ordered ONE (06:59)
[2020-12-06] MEDS ORDERED: ROCURONIUM BROMIDE 50 MG/5 ML VIAL As Ordered ONE (06:59)
[2020-12-06] MEDS ORDERED: dexameTHASONE 4 MG/ML 1ML VIAL (J1100 PER 1MG) As Ordered ONE (06:59)
[2020-12-06] MEDS ORDERED: LIDOCAINE 2% 100MG/5ML SDV (FOR ANES.) As Ordered ONE (06:59)
[2020-12-06] MEDS ORDERED: SUGAMMADEX SODIUM 500 MG/5 ML VIAL (BRIDION) As Ordered ONE (07:06)
[2020-12-06] MEDS ORDERED: BUPIVACAINE/EPIN 0.25% 30 ML VIAL As Ordered ONE (07:09)
[2020-12-06] MEDS ORDERED: ETOMIDATE INJ 20MG/10ML VIAL As Ordered ONE (07:25)
[2020-12-06] MEDS: ceFAZolin SOD 1 GM in D5W MINI-BAG PLUS 50 ML IV SCH (07:50)
[2020-12-06] MEDS ORDERED: LR 1,000 ML IV SCH (09:00)
[2020-12-06] MEDS ORDERED: fentaNYL 100 MCG/2 ML INJECTION (J3010) IV PRN (09:00)
[2020-12-06] MEDS ORDERED: NORCO, ANEXSIA 5/325MG TABLET (HYDROcodone/ACETAMINOPHEN) PO PRN (09:00)
[2020-12-06] MEDS ORDERED: ONDANSETRON 4MG/2ML VIAL IV PRN (09:00)
[2020-12-06] MEDS: oxyCODONE 5MG TAB PO PRN ×2 (09:20→09:57)
[2020-12-06] MEDS ORDERED: KETOROLAC 30 MG/ML 1ML VIAL IV PRN (10:00)
[2020-12-06 11:15] VITALS: BP 142/81
--- NOTE | 2020-12-06 17:29 | RO ---
OPERATIVE NOTE DATE OF OPERATION: 12/06/2020 PREOPERATIVE DIAGNOSIS: Incarcerated umbilical hernia. POSTOPERATIVE DIAGNOSIS: Incarcerated umbilical hernia PROCEDURE: Robotic incarcerated umbilical hernia repair SURGEON: Mook Akhtar DO GELATIN MAKER UTILITY: Viviana Girard ANESTHESIA: General ESTIMATED BLOOD LOSS: 5 mL COMPLICATIONS: None. INDICATION FOR PROCEDURE: The patient is a 75-year-old male who presents with umbilical hernia that he has had for many years. Recently, he has been unable to push it back in. Due to the tenderness, he would prefer to have this repaired. Recommendation was to proceed with robotic repair. Risks and benefits of the procedure were not limited to, but included bleeding, infection, hernias, hernia recurrence, damage to surrounding structures and need for further surgery was discussed in detail with the patient. Informed consent was obtained and procedure was planned. DESCRIPTION OF PROCEDURE: The patient was brought back to operating room 7. After successful sedation, the abdomen was sterilely prepped and draped. Next, time-out was done to confirm to proper patient and proper procedure. Following that, an 8 mm incision was made in the left upper quadrant. Veress needle was inserted and the abdomen was insufflated to 50 mmHg. The Veress needle was then removed and then an 8 mm Optiview port was used to gain access to the abdomen. Once the abdomen was entered, two more ports were placed; one supraumbilically just left of the xiphoid, one in the right upper quadrant. Next, the robot was docked to the ports, next, from the console. A horizontal incision was made into the preperitoneal space just superior to the umbilicus. The preperitoneal space was then dissected free, heading inferiorly circumferentially around the hernia sac. The hernia sac was then carefully reduced. Once it was completely reduced, the facial defect with a running 0 STRATAFIX suture. Once that was competed, a 3 cm round piece of Prograf mesh was placed over top of the suture defect on the fascia. The peritoneum was then closed over top of it using a 2-0 V-Loc suture. Once this was all completed, the abdomen was desufflated. The skin incisions were closed with 4-0 Vicryl subcuticular sutures. The abdomen was clean and dry and Steri-Strips, 4 x 4 and tape were applied. WILLIAN
== END 2020-12-06 11:26 | disposition home or self-care (01) ==
LOC: M SDC 06:04
PROVIDERS: ATTEND Surgery
DX: K42.0 Umbilical hernia with obstruction, without gangrene (principal); I10 Essential (primary) hypertension; E78.5 Hyperlipidemia, unspecified; F41.9 Anxiety disorder, unspecified; F32.9 Major depressive disorder, single episode, unspecified; G47.33 Obstructive sleep apnea (adult) (pediatric); Z79.82 Long term (current) use of aspirin; Z95.0 Presence of cardiac pacemaker; Z85.46 Personal history of malignant neoplasm of prostate; Z88.8 Allergy status to other drugs, medicaments and biological substances
CPT/HCPCS: 49653; C1781; J0131; J0690; J1100; J1885; J2250; J2405; J3010; S2900

== ENCOUNTER → 2021-08-19 | Outpatient (REF) | payer MEDICARE ==
[~2021-08-19] MED LIST changes: -EMLA CREAM 5GM TUBE (LIDOCAINE/PRILOCAINE) TOP PRN; -LIDOCAINE 1% MDV 20ML VIAL SQ PRN; -LR 1,000 ML IV ONE; -TRIA37.53 PO; +TRIA37.577 PO
[2021-08-19 12:38] LABS: BASO % 0.4 % (0.0-1.0); EOS # 0.2 10^3/uL (0.0-0.5); EOS % 3.6 % (0.0-3.0); HEMATOCRIT 47.2 % (42.0-52.0); HEMOGLOBIN 16.2 g/dl (13.5-17.5); LYMPH # 1.2 10^3/uL (1.5-5.0); LYMPH % 17.5 % (24.0-44.0); MEAN CORPUSCULAR HEMOGLOBIN 30.9 pg (27.0-33.0); MEAN CORPUSCULAR HGB CONC 34.3 g/dl (32.0-36.5); MEAN CORPUSCULAR VOLUME 89.9 fl (80.0-96.0); MONO # 0.7 10^3/uL (0.0-0.8); MONO % 9.9 % (2.0-8.0); NEUTROPHILS # 4.6 10^3/uL (1.5-8.5); NEUTROPHILS % 68.5 % (36.0-66.0); PLATELET COUNT, AUTOMATED 210 10^3/uL (150-450); RED BLOOD COUNT 5.25 10^6/uL (4.30-6.10); WHITE BLOOD COUNT 6.8 10^3/uL (4.0-10.0)
[2021-08-19 14:55] LABS: ALT/SGPT 21 U/L (12-78); BILIRUBIN,TOTAL 0.6 MG/DL (0.2-1.0); BLOOD UREA NITROGEN 20 MG/DL (7-18); CALCIUM LEVEL 9.3 MG/DL (8.8-10.2); CARBON DIOXIDE LEVEL 29 MEQ/L (21-32); CHLORIDE LEVEL 104 MEQ/L (98-107); CHOLESTEROL LEVEL 145 MG/DL (<200); CHOLESTEROL RISK RATIO 4.142 (<5); CREATININE FOR GFR 1.14 MG/DL (0.70-1.30); GLOMERULAR FILTRATION RATE > 60.0 (>42); GLUCOSE, FASTING 137 MG/DL (70-100); HDL CHOLESTEROL 35 MG/DL (>40); LDL CHOLESTEROL 70 MG/DL (<100); NON-HDL-C 110 MG/DL; POTASSIUM SERUM 3.9 MEQ/L (3.5-5.1); PROSTATIC SPECIFIC AG MONITOR < 0.01 NG/ML (< 4.00); SODIUM LEVEL 141 MEQ/L (136-145); TOTAL PROTEIN 7.7 GM/DL (6.4-8.2); TRIGLYCERIDES LEVEL 202 MG/DL (<150)
[2021-08-19 18:31] LABS: HEMOGLOBIN A1c 5.9 %
== END ==
LOC: M SFHCCLAY 08:24
PROVIDERS: ATTEND Family Medicine
DX: R73.01 Impaired fasting glucose (principal); I10 Essential (primary) hypertension; E78.2 Mixed hyperlipidemia; Z85.46 Personal history of malignant neoplasm of prostate

== ENCOUNTER → 2022-08-21 | Outpatient (REF) | payer MEDICARE ==
[~2022-08-21] MED LIST changes: +MONT-5 PO; -SING10TA32 PO
[2022-08-21 11:27] LABS: HEMATOCRIT 48.3 % (42.0-52.0); HEMOGLOBIN 17.3 g/dl (13.5-17.5); MEAN CORPUSCULAR HEMOGLOBIN 32.2 pg (27.0-33.0); MEAN CORPUSCULAR HGB CONC 35.8 g/dl (32.0-36.5); MEAN CORPUSCULAR VOLUME 89.8 fl (80.0-96.0); PLATELET COUNT, AUTOMATED 210 10^3/uL (150-450); RED BLOOD COUNT 5.38 10^6/uL (4.30-6.10); WHITE BLOOD COUNT 7.5 10^3/uL (4.0-10.0)
[2022-08-21 11:28] LABS: PROSTATIC SPECIFIC AG MONITOR 0.04 NG/ML (< 4.00)
[2022-08-21 11:31] LABS: ALKALINE PHOSPHATASE 97 U/L (46-116); ALT/SGPT 17 U/L (7.0-40); AST/SGOT 10 U/L (<34); BILIRUBIN,TOTAL 0.8 MG/DL (0.3-1.2); BLOOD UREA NITROGEN 23 MG/DL (9-23); CALCIUM LEVEL 9.1 MG/DL (8.3-10.6); CARBON DIOXIDE LEVEL 30 MMOL/L (20-31); CHLORIDE LEVEL 102 MMOL/L (98-107); CHOLESTEROL LEVEL 134 MG/DL (<200); CHOLESTEROL RISK RATIO 3.58 (<5); CREATININE FOR GFR 1.01 MG/DL (0.70-1.30); GLOMERULAR FILTRATION RATE > 60.0 (>42); GLUCOSE, FASTING 148 MG/DL (74-106); HDL CHOLESTEROL 37.4 MG/DL (>40); LDL CHOLESTEROL 63.4 MG/DL (<100); NON-HDL-C 96.6 MG/DL; SODIUM LEVEL 139 MMOL/L (136-145); TRIGLYCERIDES LEVEL 166 MG/DL (<150)
[2022-08-21 11:49] LABS: HEMOGLOBIN A1c 6.6 % (4.0-6.0)
== END ==
LOC: M SFHCCLAY 09:04
PROVIDERS: ATTEND Family Medicine
DX: R73.01 Impaired fasting glucose (principal); G62.9 Polyneuropathy, unspecified; E78.2 Mixed hyperlipidemia; I10 Essential (primary) hypertension; Z85.46 Personal history of malignant neoplasm of prostate

== ENCOUNTER → 2022-10-02 | Outpatient (CLI) | payer MEDICARE | LOC: M RAD 13:10 | PROVIDERS: ATTEND Family Medicine | DX: M48.061 Spinal stenosis, lumbar region without neurogenic claudication (principal) ==

== ENCOUNTER → 2023-08-24 | Outpatient (REF) | payer MEDICARE ==
[2023-08-24 11:25] LABS: HEMATOCRIT 46.4 % (42.0-52.0); MEAN CORPUSCULAR HEMOGLOBIN 30.9 pg (27.0-33.0); MEAN CORPUSCULAR HGB CONC 34.5 g/dl (32.0-36.5); MEAN CORPUSCULAR VOLUME 89.6 fl (80.0-96.0); PLATELET COUNT, AUTOMATED 214 10^3/uL (150-450); RED BLOOD COUNT 5.18 10^6/uL (4.30-6.10); WHITE BLOOD COUNT 8.7 10^3/uL (4.0-10.0)
[2023-08-24 11:49] LABS: HEMOGLOBIN A1c 5.7 % (4.0-6.0)
[2023-08-24 11:56] LABS: PROSTATIC SPECIFIC AG MONITOR 0.04 NG/ML (< 4.00)
[2023-08-24 12:00] LABS: THYROID STIMULATING HORMONE 2.336 uIU/ML (0.55-4.78)
[2023-08-24 12:01] LABS: ALBUMIN 3.8 G/DL (3.2-5.2); ALKALINE PHOSPHATASE 93 U/L (46-116); ALT/SGPT 19 U/L (7.0-40); AST/SGOT 9 U/L (<34); BILIRUBIN,TOTAL 0.7 MG/DL (0.3-1.2); BLOOD UREA NITROGEN 26 MG/DL (9-23); CALCIUM LEVEL 9.6 MG/DL (8.3-10.6); CARBON DIOXIDE LEVEL 30 MMOL/L (20-31); CHLORIDE LEVEL 106 MMOL/L (98-107); CHOLESTEROL LEVEL 134 MG/DL (<200); CHOLESTEROL RISK RATIO 3.35 (<5); CREATININE FOR GFR 0.88 MG/DL (0.70-1.30); GLOMERULAR FILTRATION RATE > 60.0 (>42); GLUCOSE, FASTING 128 MG/DL (74-106); LDL CHOLESTEROL 70.2 MG/DL (<100); POTASSIUM SERUM 4.1 MMOL/L (3.5-5.1); SODIUM LEVEL 142 MMOL/L (136-145); TOTAL PROTEIN 7.1 G/DL (5.7-8.2); TRIGLYCERIDES LEVEL 119 MG/DL (<150)
[2023-08-24 12:04] LABS: VITAMIN B12 LEVEL > 2000 PG/ML (211-911)
== END ==
LOC: M SFHCCLAY 08:41
PROVIDERS: ATTEND Family Medicine
DX: E78.2 Mixed hyperlipidemia (principal); I10 Essential (primary) hypertension; E53.8 Deficiency of other specified B group vitamins; R73.01 Impaired fasting glucose; Z85.46 Personal history of malignant neoplasm of prostate

== ENCOUNTER → 2023-11-06 | Outpatient (REF) | payer MEDICARE ==
[~2023-11-06] MED LIST changes: +NIFE1CAP2 PO; -NIFE20CA PO
[2023-11-06 17:25] LABS: BASO % 0.4 % (0.0-1.0); EOS # 0.2 10^3/uL (0.0-0.5); EOS % 2.2 % (0.0-3.0); HEMATOCRIT 47.3 % (42.0-52.0); HEMOGLOBIN 16.3 g/dl (13.5-17.5); LYMPH # 1.6 10^3/uL (1.5-5.0); LYMPH % 16.2 % (24.0-44.0); MEAN CORPUSCULAR HEMOGLOBIN 30.5 pg (27.0-33.0); MEAN CORPUSCULAR HGB CONC 34.5 g/dl (32.0-36.5); MEAN CORPUSCULAR VOLUME 88.4 fl (80.0-96.0); MONO % 10.8 % (2.0-8.0); NEUTROPHILS # 6.8 10^3/uL (1.5-8.5); NEUTROPHILS % 70.2 % (36.0-66.0); PLATELET COUNT, AUTOMATED 222 10^3/uL (150-450); RED BLOOD COUNT 5.35 10^6/uL (4.30-6.10); WHITE BLOOD COUNT 9.6 10^3/uL (4.0-10.0)
[2023-11-06 17:33] LABS: ERYTHROCYTE SEDIMENTATION RATE 23 mm/hr (0-20)
[2023-11-06 17:50] LABS: ALBUMIN 4.1 G/DL (3.2-5.2); ALKALINE PHOSPHATASE 100 U/L (46-116); ALT/SGPT 19 U/L (7.0-40); AST/SGOT 10 U/L (<34); BILIRUBIN,TOTAL 0.8 MG/DL (0.3-1.2); BLOOD UREA NITROGEN 24 MG/DL (9-23); C REACTIVE PROTEIN QUANTITATIV < 0.40 MG/DL (<1.0); CALCIUM LEVEL 9.8 MG/DL (8.3-10.6); CARBON DIOXIDE LEVEL 26 MMOL/L (20-31); CHLORIDE LEVEL 101 MMOL/L (98-107); CREATININE FOR GFR 0.85 MG/DL (0.70-1.30); GLOMERULAR FILTRATION RATE > 60.0 (>42); GLUCOSE, FASTING 129 MG/DL (74-106); POTASSIUM SERUM 3.6 MMOL/L (3.5-5.1); SODIUM LEVEL 133 MMOL/L (136-145); TOTAL PROTEIN 7.6 G/DL (5.7-8.2)
== END ==
LOC: M SFHCCLAY 11:39
PROVIDERS: ATTEND Physician Assistant
DX: G43.009 Migraine without aura, not intractable, without status migrainosus (principal)

== ENCOUNTER → 2023-11-30 | Outpatient (REF) | payer MEDICARE | LOC: M LABDRAWC 11:02 | PROVIDERS: ATTEND Nurse Practitioner Family | DX: Z85.46 Personal history of malignant neoplasm of prostate (principal) ==

== ENCOUNTER → 2024-10-27 | Outpatient (REF) | payer MEDICARE ==
[2024-10-27 13:52] LABS: ALT/SGPT 18 U/L (7.0-40); AST/SGOT 16 U/L (<34); CALCIUM LEVEL 9.5 MG/DL (8.3-10.6); CARBON DIOXIDE LEVEL 26 MMOL/L (20-31); CHLORIDE LEVEL 104 MMOL/L (98-107); CREATININE FOR GFR 1.05 MG/DL (0.70-1.30); GLOMERULAR FILTRATION RATE 72.2 (>42); POTASSIUM SERUM 3.9 MMOL/L (3.5-5.1); SODIUM LEVEL 142 MMOL/L (136-145)
[2024-10-27 14:18] LABS: HEPATITIS C VIRUS ABY INDEX < 0.02 INDEX (<0.8)
== END ==
LOC: M SFHCCLAY 08:14
PROVIDERS: ATTEND Family Medicine
DX: Z01.89 Encounter for other specified special examinations (principal); R74.8 Abnormal levels of other serum enzymes; Z79.899 Other long term (current) drug therapy

== ENCOUNTER → 2024-11-28 | Outpatient (REF) | payer MEDICARE | LOC: M SFHCCLAY 08:12 | PROVIDERS: ATTEND Family Medicine | DX: Z85.46 Personal history of malignant neoplasm of prostate (principal) ==